=== PATIENT | male | born 1950 | race Caucasian/White ===

== ENCOUNTER 2020-03-31 11:54 | Outpatient (CLI) | payer MEDICARE, OTHER ==
--- NOTE | 2020-03-24 13:02 | NUR ---
SPOKE TO PT REGARDING COVID TESTING ON 03/27 WITH [employer] ON 03/31
[~2020-03-31] VITALS: Ht 172.7 cm; Wt 102.0 kg
[~2020-03-31 11:54] MED LIST: BACTRIM DS 8001 TAB PO; BLOOD PRESSURE MED; CEPHALEXIN500 M1 PO; LIPITOR 10MG10 MG; LORTAB 5/500 501 TAB PO; NORVASC 5MG5 MG/TAB; WELLBUTRIN 100100 MG PO; ZESTRIL40 MG PO
[2020-03-31] MEDS ORDERED: CYMBALTA 60MG60 MG (12:38)
[2020-03-31] MEDS ORDERED: PRAVACHOL 40MG40 MG PO (12:38)
[2020-03-31] MEDS ORDERED: INDOCIN 25MG CA25 MG PO (12:39)
[2020-03-31 12:47] VITALS: BP 122/83; PULSE 72; TEMP 98.5
[2020-03-31 12:58] LABS: HEMATOCRIT 45.5 % (42.0-52.0); HEMOGLOBIN 15.7 g/dl (13.5-18.0); MEAN CELL VOLUME 91 fl (80.0-100.0); MEAN CORPUSCULAR HEMOGLOBIN 31 pg (27.0-31.0); MEAN CORPUSCULAR HGB CONC 35 g/dl (33.0-37.0); MEAN PLATELET VOLUME 11.9 fl (7.4-10.4); PLATELET COUNT 183 K/mm3 (130-400); RED BLOOD COUNT 5.01 M/mm3 (4.20-5.60); REDCELL DISTRIBUTION WIDTH-CV 12.5 % (11.5-14.5)
[2020-03-31 13:03] LABS: CALCIUM 9.5 mg/dL (8.4-10.2); CREATININE, serum 0.95 (0.66-1.25); POTASSIUM 4.2 mmol/L (3.4-5.0)
[2020-03-31 13:04] LABS: INR 1.1 (0.8-3.0); PROTHROMBIN TIME 12.5 SECONDS (9.7-12.8)
[2020-03-31] MEDS ORDERED: ASPIRIN 81M81 MG/TA2 PO (14:50)
[2020-03-31 15:03] VITALS: BP 94/76; PULSE 82
--- NOTE | 2020-03-31 15:11 | NUR ---
BS report received from Chantale KENNEDY. pt sitting up in bed, awake and alert, pwd, resps unlabored. SR on monitor, 96% on room air. clearing throat frequently. given ice water, swallows with no problem. will continue to monitor.
[2020-03-31 15:15] VITALS: BP 127/86; PULSE 80
[2020-03-31 15:30] VITALS: BP 114/76; PULSE 79
[2020-03-31 15:45] VITALS: BP 133/95; PULSE 70
--- NOTE | 2020-03-31 17:41 | NUR ---
Pt to exit via wheelchair at this time. Pt recovered from his JASON well, he has been ready to go since 1619, he has been waiting for his . Pt has been able to eat and drink, he is not needing to clear his throat anymore. pt is pwd with reg and unlabored breathing. IV was dc'd with cath intact, dressing was applied. pt verbalized understanding of his discharge instructions.
== END 2020-03-31 17:41 | disposition home or self-care (01) ==
LOC: COL.RAD 11:54
PROVIDERS: Internal Medicine Cardiovascular Disease
DX: I21.9 Acute myocardial infarction, unspecified (principal); I08.0 Rheumatic disorders of both mitral and aortic valves; Z20.828 Contact with and (suspected) exposure to other viral communicable diseases
CPT/HCPCS: J2704

== ENCOUNTER 2020-12-25 10:49 | Day surgery (SDC) | payer MEDICARE ==
[~2020-12-25] VITALS: Ht 172.9 cm; Wt 103.3 kg
[2020-12-25] VITALS (10 sets, daily range): BP systolic 97–126; BP diastolic 55–77; PULSE 65–79; TEMP 98.4
[~2020-12-25 10:49] MED LIST changes: +ASPIRIN 81M81 MG/TA2 PO; +CYMBALTA 60MG60 MG; +INDOCIN 25MG CA25 MG PO; +PRAVACHOL 40MG40 MG PO
[2020-12-25] MEDS ORDERED: ASPIRIN 81M81 MG/TA2 PO (11:06)
[2020-12-25 11:59] LABS: INR 1.1 (0.8-3.0); PROTHROMBIN TIME 12.2 SECONDS (9.7-12.8)
[2020-12-25 12:02] LABS: PARTIAL THROMBOPLASTIN TIME 30.5 SECONDS (26.0-37.0)
[2020-12-25 12:05] LABS: HEMATOCRIT 44.5 % (42.0-52.0); HEMOGLOBIN 15.2 g/dl (13.5-18.0); MEAN CELL VOLUME 92 fl (80.0-100.0); MEAN CORPUSCULAR HEMOGLOBIN 31 pg (27.0-31.0); MEAN CORPUSCULAR HGB CONC 34 g/dl (33.0-37.0); MEAN PLATELET VOLUME 11.9 fl (7.4-10.4); PLATELET COUNT 154 K/mm3 (130-400); RED BLOOD COUNT 4.85 M/mm3 (4.20-5.60); REDCELL DISTRIBUTION WIDTH-CV 12.9 % (11.5-14.5)
[2020-12-25 12:10] LABS: CALCIUM 9.6 mg/dL (8.4-10.2); CREATININE, serum 0.89 (0.66-1.25); POTASSIUM 4.4 mmol/L (3.4-5.0)
--- NOTE | 2020-12-25 12:58 | NUR ---
SEE MERGE DOCUMENTATION FOR MEDICATION ADMINISTRATION TIMES AND INTRA/POST PROCEDURE SEDATION ASSESSMENTS.
--- NOTE | 2020-12-25 13:35 | NUR ---
Report from Stuart KENNEDY. 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 Right Tband with 13 cc air CD&I, good pulses and cap refill < 3 secs. Telemetry placed on pt. VSS. Denies pain and needs at this time
--- NOTE | 2020-12-25 16:20 | NUR ---
13 cc released from right Tband and dressing applied to site.
--- NOTE | 2020-12-25 17:26 | NUR ---
Report given to Jennifer natarajan med. [facility] here to transport pt.
== END 2020-12-25 17:27 | disposition critical access hospital (66) ==
LOC: COL.CAR 10:49
PROVIDERS: Internal Medicine Cardiovascular Disease
DX: I25.10 Atherosclerotic heart disease of native coronary artery without angina pectoris (principal); I35.0 Nonrheumatic aortic (valve) stenosis; I10 Essential (primary) hypertension; E78.5 Hyperlipidemia, unspecified; Z79.82 Long term (current) use of aspirin; Z79.899 Other long term (current) drug therapy; Z20.822 Contact with and (suspected) exposure to COVID-19; Z95.2 Presence of prosthetic heart valve; Z83.3 Family history of diabetes mellitus
CPT/HCPCS: C1887; C1894; J1644; J2250; J3010; J7030; Q9967

== ENCOUNTER → 2021-05-07 | Outpatient (RCR) | payer MEDICARE | END | disposition home or self-care (01) | LOC: COL.CR | DX: Z48.812 Encounter for surgical aftercare following surgery on the circulatory system (principal); Z95.1 Presence of aortocoronary bypass graft; I25.10 Atherosclerotic heart disease of native coronary artery without angina pectoris ==